=== PATIENT | female | born 1970 | race Caucasian/White ===

== ENCOUNTER → 2024-02-27 07:00 | Outpatient (REF) | payer BC, SELFPAY | LOC: HWWDC 07:00 | PROVIDERS: ATTENDING PHYSICIAN Nurse Practitioner Family; FAMILY PHYSICIAN Family Medicine | DX: Z12.31 Encounter for screening mammogram for malignant neoplasm of breast (principal) | CPT/HCPCS: 77063; 77067 ==

== ENCOUNTER → 2024-09-16 13:49 | Outpatient (REF) | payer BC, SELFPAY | LOC: HWRCS 13:49 | PROVIDERS: ATTENDING PHYSICIAN Internal Medicine Critical Care Medicine; FAMILY PHYSICIAN Family Medicine | DX: R94.2 Abnormal results of pulmonary function studies (principal); R06.09 Other forms of dyspnea; R05.3 Chronic cough; Z87.898 Personal history of other specified conditions | CPT/HCPCS: 71250; 93306 ==

== ENCOUNTER → 2024-12-17 10:01 | Outpatient (REF) | payer BC, SELFPAY | LOC: HWRAD 10:01 | PROVIDERS: ATTENDING PHYSICIAN Internal Medicine Critical Care Medicine; FAMILY PHYSICIAN Family Medicine | DX: R91.1 Solitary pulmonary nodule (principal) | CPT/HCPCS: 71250 ==

== ENCOUNTER → 2025-08-04 07:45 | Outpatient (REF) | payer BC, SELFPAY | LOC: HWRAD 07:45 | PROVIDERS: ATTENDING PHYSICIAN Student in an Organized Health Care Education/Training Program; FAMILY PHYSICIAN Family Medicine | DX: R07.81 Pleurodynia (principal); R10.11 Right upper quadrant pain | CPT/HCPCS: 71101; 76700 ==

== ENCOUNTER → 2025-08-13 20:09 | Outpatient (REF) | payer BC, SELFPAY | LOC: MRI 20:09 | PROVIDERS: ATTENDING PHYSICIAN Student in an Organized Health Care Education/Training Program; FAMILY PHYSICIAN Family Medicine | DX: K86.2 Cyst of pancreas (principal) | CPT/HCPCS: 74183; A9575 ==